=== PATIENT | female | born 1975 | race Caucasian/White ===

== ENCOUNTER 2017-01-25 00:15 | Emergency (ER) | payer MEDICAID ==
[~2017-01-25] VITALS: Ht 170.2 cm; Wt 90.7 kg
[2017-01-25 00:19] VITALS: BP 156/100
--- NOTE | 2017-01-25 00:37 | NUR ---
PATIENT PRESENTS TO ED WITH LOWER ABD PAIN,N/V STARTED AT 2100 HOURS. DENIES DIARRHEA ;SKIN IS PINK/WARM/DRY; AAOX4 WITH EVEN AND STEADY GAIT; LUNGS CLEAR BL; HR EVEN AND REGULAR; PT DENIES ANY FEVER, CP, SOB, OR COUGH AT THIS TIME; PATIENT STATES PAIN OF 10/10 LOWER ABDOMINAL PAIN;AT THIS TIME;PATIENT POSITIONED FOR COMFORT; HOB ELEVATED; BEDRAILS UP X2; BED DOWN. ER WILL BE NOTIFIED.
[2017-01-25] MEDS ORDERED: NACL 0.9% 1,000 ML IV ONE (00:47)
[2017-01-25] MEDS ORDERED: MORPHINE SULFATE 4 MG/ML SYR IVP ONE (00:50)
[2017-01-25] MEDS ORDERED: ONDANSETRON 4 MG/2 ML VIAL IVP ONE (00:50)
[2017-01-25] MEDS ORDERED: KETOROLAC 30 MG/ML VIAL IVP ONE ×2 (00:50→01:40)
--- NOTE | 2017-01-25 00:55 | NUR ---
LAB AT BEDSIDE.
[2017-01-25 01:03] LABS: APPEARANCE,URINE CLEAR (CLEAR); BILIRUBIN,URINE NEGATIVE (NEGATIVE); BLOOD, URINE 1+ (NEGATIVE); COLOR,URINE YELLOW (YELLOW); LEUKOCYTE ESTERASE ,URINE 1+ (NEGATIVE); NITRITE, URINE NEGATIVE (NEGATIVE); PROTEIN,URINE NEGATIVE (NEGATIVE); UGLUCOSE NEGATIVE (NEGATIVE); UROBILINOGEN,URINE 0.2 EU/dL (0.2 - 1)
[2017-01-25 01:06] LABS: HEMATOCRIT 40.6 % (36-48); HEMOGLOBIN 13.5 g/dL (12.0-16.0); MEAN CORPUSCULAR HEMOGLOBIN 29 pg (27-31); MEAN CORPUSCULAR HGB CONC 33 g/dL (33-37); MEAN CORPUSCULAR VOLUME 88 fL (80-94); PLATELET COUNT (AUTO) 322 K/uL (140-450); RED BLOOD CELL COUNT(AUTO) 4.62 MIL/uL (4.20-5.40); RED CELL DISTRIBUTION WIDTH 12.5 % (11.6-13.7); WHITE BLOOD COUNT (AUTO) 7.4 K/uL (4.8-10.8)
[2017-01-25 01:14] LABS: ANION GAP 10.1 (8-16); CALCIUM 8.7 mg/dL (8.5-10.1); CARBON DIOXIDE 28.6 mmol/L (21-32); CREATININE 0.8 mg/dL (0.6-1.3); POTASSIUM 3.7 mmol/L (3.5-5.1)
[2017-01-25 01:15] LABS: BAND % (MANUAL) 0 % (0-8); NEUTROPHILS % (MANUAL) 43 (43-65)
[2017-01-25 01:16] LABS: EOSINOPHILS % (MANUAL) 5 % (0-4); LYMPHOCYTES % (MANUAL) 49 % (20-46); MONOCYTES % (MANUAL) 3 % (5-12)
[2017-01-25 01:20] LABS: ALBUMIN 3.5 g/dL (3.4-5.0); TOTAL BILIRUBIN 0.2 mg/dL (0.0-1.0); TOTAL PROTEIN, SERUM 7.6 g/dL (6.4-8.2)
--- NOTE | 2017-01-25 01:23 | NUR ---
PT TAKEN FOR CT SCAN.
[2017-01-25 01:25] LABS: BACTERIA,URINE 4+ /HPF (None Seen)
--- NOTE | 2017-01-25 01:31 | NUR ---
PT BACK FROM CT SCAN.
--- NOTE | 2017-01-25 01:38 | NUR ---
PT RESTING IN BED, VSS, NO S/S OF DISTRESS NOTED AT THE MOMENT. STATES HER PAIN HAS DECREASED TO A 3/10.
[2017-01-25] MEDS ORDERED: HYDROcodone/APAP 5/325 MG 1 TAB TAB PO ONE (01:40)
--- NOTE | 2017-01-25 02:25 | NUR ---
IV removed, catheter intact and site benign. Applied folded 4x4 gauze and tape to stop bleeding.
--- NOTE | 2017-01-25 02:29 | NUR ---
Patient discharged with v/s stable. Written and verbal after care instructions given and explained. Patient alert, oriented and verbalized understanding of instructions. Ambulatory with steady gait. All questions addressed prior to discharge. ID band removed. Patient advised to follow up with PMD. Rx of ZOFRAN ODT 4MG, KEFLEX 500MG, NORCO 5/325MG, FLOMAX 0.4MG, NAPROSYN 500MG given. Patient educated on indication of medication including possible reaction and side effects. Opportunity to ask questions provided and answered.
[2017-01-25 02:30] VITALS: BP 122/79
== END 2017-01-25 02:30 | disposition home or self-care (01) ==
LOC: MED 00:15
DX: N20.1 Calculus of ureter (principal); R82.71 Bacteriuria; Z90.49 Acquired absence of other specified parts of digestive tract
CPT/HCPCS: 36415; 74176; 80053; 81001; 81025; 83690; 85025; 87086; 96361; 96374; 96375; 99285; J1885; J2270; J2405; J7030

== ENCOUNTER 2017-01-29 08:25 | Inpatient (IN) | payer MEDICAID ==
[~2017-01-29] VITALS: Ht 157.5 cm; Wt 89.4 kg
[2017-01-29 08:36] VITALS: BP 115/72
--- NOTE | 2017-01-29 08:36 | NUR ---
Patient ambulated to bed 5. RN evaluating patient at bedside.
--- NOTE | 2017-01-29 08:37 | NUR ---
41F BIB DAUGHTER C/O RLQ ABDOMINAL PAIN WITH VOMITING X 5 DAYS. PT STATES WAS SEEN IN ER ON MONDAY WITH SAME PAIN, AND PAIN NOT IMPROVING.SKIN IS PINK/WARM/DRY; AAOX4 WITH EVEN AND STEADY GAIT; LUNGS CLEAR BL; HR EVEN AND REGULAR; PT DENIES ANY FEVER, CP, SOB, OR COUGH AT THIS TIME; PATIENT STATES PAIN OF 8/10 AT THIS TIME; VSS; PATIENT POSITIONED FOR COMFORT; HOB ELEVATED; BEDRAILS UP X2; BED DOWN. ER MD MADE AWARE OF PT STATUS.
[2017-01-29] MEDS ORDERED: NACL 0.9% 500 ML IV SCH (08:38)
[2017-01-29] MEDS ORDERED: MORPHINE SULFATE 10 MG/ML SYR IVP ONE (08:40)
[2017-01-29] MEDS ORDERED: ONDANSETRON 4 MG/2 ML VIAL IVP ONE (08:40)
[2017-01-29] MEDS ORDERED: HYDROmorphone PFS 2 MG/ML SYR IVP ONE (08:40)
[2017-01-29 08:59] LABS: HEMATOCRIT 42.3 % (36-48); HEMOGLOBIN 13.7 g/dL (12.0-16.0); MEAN CORPUSCULAR HEMOGLOBIN 29 pg (27-31); MEAN CORPUSCULAR HGB CONC 32 g/dL (33-37); MEAN CORPUSCULAR VOLUME 88 fL (80-94); PLATELET COUNT (AUTO) 343 K/uL (140-450); RED BLOOD CELL COUNT(AUTO) 4.79 MIL/uL (4.20-5.40); RED CELL DISTRIBUTION WIDTH 12.3 % (11.6-13.7); WHITE BLOOD COUNT (AUTO) 5.3 K/uL (4.8-10.8)
--- NOTE | 2017-01-29 08:59 | NUR ---
INSERTED IV CATH 20G LAC ; PT TOLERATED PROCEDURE WELL. IV PATENT/INTACT. ADMINISTERED IVF & MEDS ORDER.
[2017-01-29 09:13] LABS: ALBUMIN 3.4 g/dL (3.4-5.0); ANION GAP 12.3 (8-16); CALCIUM 8.9 mg/dL (8.5-10.1); CARBON DIOXIDE 25.5 mmol/L (21-32); CREATININE 0.8 mg/dL (0.6-1.3); POTASSIUM 3.8 mmol/L (3.5-5.1); TOTAL BILIRUBIN 0.3 mg/dL (0.0-1.0); TOTAL PROTEIN, SERUM 7.7 g/dL (6.4-8.2)
[2017-01-29 09:37] LABS: BAND % (MANUAL) 5 % (0-8); EOSINOPHILS % (MANUAL) 1 % (0-4); LYMPHOCYTES % (MANUAL) 36 % (20-46); MONOCYTES % (MANUAL) 12 % (5-12); NEUTROPHILS % (MANUAL) 46 (43-65)
--- NOTE | 2017-01-29 09:55 | NUR ---
PT STS PAIN3/10. AMB TO RESTROOM. SENT URINE SPECIMEN TO LAB.
--- NOTE | 2017-01-29 10:09 | NUR ---
Patient appears to be resting comfortably in bed. Vital Signs within normal limits. Respirations even and unlabored.WILL CONTINUE TO MONITOR.
--- NOTE | 2017-01-29 10:40 | NUR ---
DR CABAN REEVALUATING PT AT BEDSIDE.
--- NOTE | 2017-01-29 11:00 | NUR ---
DR CABAN REEVALUATING PT AT BEDSIDE.
[2017-01-29 11:02] LABS: APPEARANCE,URINE HAZY (CLEAR); BILIRUBIN,URINE NEGATIVE (NEGATIVE); BLOOD, URINE 2+ (NEGATIVE); COLOR,URINE YELLOW (YELLOW); LEUKOCYTE ESTERASE ,URINE 1+ (NEGATIVE); NITRITE, URINE NEGATIVE (NEGATIVE); PH,URINE 7.5 (5.0-9.0); PROTEIN,URINE TRACE (NEGATIVE); UGLUCOSE NEGATIVE (NEGATIVE); UROBILINOGEN,URINE 0.2 EU/dL (0.2 - 1)
[2017-01-29] MEDS ORDERED: NACL 0.9% 1,000 ML IV ONE (11:05)
[2017-01-29 11:11] LABS: BACTERIA,URINE 1+ /HPF (None Seen)
[2017-01-29 11:12] LABS: MUCUS,URINE 2+ /LPF (None Seen); RBC,URINE 11-20 (MOD) /HPF (0-5)
[2017-01-29] MEDS ORDERED: KETOROLAC 15 MG/ML VIAL IVP PRN (12:40)
[2017-01-29] MEDS ORDERED: ONDANSETRON 4 MG ODT PO PRN (12:50)
[2017-01-29] MEDS ORDERED: TAMSULOSIN 0.4 MG CAP PO SCH (13:02)
--- NOTE | 2017-01-29 13:04 | NUR ---
X RAY AT BEDSIDE.
[2017-01-29] MEDS ORDERED: HYDR-4446 PO (13:05)
[2017-01-29] MEDS ORDERED: TAMS0.4C96 PO (13:05)
[2017-01-29] MEDS ORDERED: ONDA4ODT1 PO (13:05)
[2017-01-29] MEDS ORDERED: NAPR500T1 PO (13:05)
[2017-01-29] MEDS ORDERED: CEPH500C16 PO (13:05)
--- NOTE | 2017-01-29 13:15 | NUR ---
GAVE REPORT TO JOANNE DELONG.
--- NOTE | 2017-01-29 13:17 | NUR ---
Patient will be admitted to care of DR MOHAN. Admited to TELE. Will go to room 105A. Belongings list completed. Report to JOANNE DELONG.
--- NOTE | 2017-01-29 13:40 | NUR ---
PT ARRIVED ON THE UNIT WITH 2 ER NURSES. PT IS ALERT AND AWAKE. INTRODUCED SELF AND UPDATED THE BOARD. PT IS UNABLE TO MOVE. NO STRENGTH IN ARMS OR LEGS OR NECK. PT STATES SHE WALKED INTO THE ER. AFTER MEDICATIONS, SHE WASN'T ABLE TO MOVE OR FEEL HER BODY. PT HAS AN IV ON THE L AC 20G SL. SKIN IS INTACT. DENIES PAIN AT THIS TIME. WILL START ON ADMISSION.
--- NOTE | 2017-01-29 14:40 | NUR ---
PT WANTED TO USE THE BATHROOM. WILL GET BEDPAN.
[2017-01-29 15:25] VITALS: BP 122/79
[2017-01-29 16:00] VITALS: BP 107/69
[2017-01-29] MEDS: NACL 0.9% 1,000 ML IV SCH ×2 (16:16→23:52)
--- NOTE | 2017-01-29 16:40 | NUR ---
RESIDENT MD SAW PT AND ASSESSED HER. SENSE OF FEELING IS RETURNING, PT ABLE TO MOVE ARMS AND LEGS. PER MD, DILAUDID AND MORPHINE GIVEN IN ER WAS CAUSING THE WEAKNESS.
--- NOTE | 2017-01-29 17:22 | NUR ---
PT RESTING COMFORTABLY. NO SIGNS OF DISTRESS. WILL CONTINUE TO MONITOR PT.
--- NOTE | 2017-01-29 18:41 | NUR ---
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 PT IS HAVING MORE FEELING IN THE ARMS AND LEGS AND IS ABLE TO MOVE A LITTLE BIT MORE. EATING WELL. WILL CONTINUE TO MONITOR PT.
--- NOTE | 2017-01-29 19:20 | NUR ---
ENDORSED PT TO THE NIGHTSHIFT NURSE AT BEDSIDE FOR CONTINUITY OF CARE. PT IN STABLE CONDITION.
--- NOTE | 2017-01-29 19:21 | NUR ---
PATIENT IS CURRENTLY AWAKE ALERT ORIENTED RESTING IN BED AT THIS TIME PATIENT IS MOVING HER ARMS A LITTLE MORE AND IS ABLE TO LIFT BOTH LEGS.PATIENT DENIES PAIN AND DENIES ANY NAUSEA AT THIS TIME.IVF INFUSING WELL IV SITE PATENT.PATIENT DENIES PAIN AND DISCOMFORT.CALL LIGHT WITHIN REACH WILL CONTINUE TO MONITOR.
[2017-01-29 20:00] VITALS: BP 106/66
--- NOTE | 2017-01-29 20:00 | NUR ---
Patient's Plan of Care was discussed and reviewed with PICKER/PULLER: ROSARIO KOWALSKI
--- NOTE | 2017-01-29 21:05 | NUR ---
PATIENT RESTING IN BED IN NO DISTRESS WILL CONTINUE TO MONITOR.PLAN OF CARE DISCUSSED WITH THE PATIENT.CALL LIGHT WITHIN REACH.
--- NOTE | 2017-01-29 22:05 | NUR ---
PATIENT IS CURRENTLY STABLE DENIES PAIN ABLE TO AMBULATE TO THE BATHROOM PATIENT CONTINUES TO BE ENCOURAGED TO CALL IF SHE NEEDS HELP.PATIENT VERBALIZES UNDERSTANDING.CALL LIGHT WITHIN REACH WILL CONTINUE TO MONITOR.
[2017-01-30] VITALS: BP 95/56
--- NOTE | 2017-01-30 00:20 | NUR ---
PATIENT STABLE RESTING IN BED DENIES PAIN AND DENIES ANY NAUSEA AT THIS TIME.IVF INFUSING WELL IV SITE PATENT WILL CONTINUE TO MONITOR.CALL LIGHT WITHIN REACH.
--- NOTE | 2017-01-30 02:50 | NUR ---
PATIENT STABLE SLEEPING IN BED,IVF INFUSING WELL IV SITE PATENT WILL CONTINUE TO MONITOR.
--- NOTE | 2017-01-30 05:34 | NUR ---
PT HAVE A ORDER FOR AM ROUTINE EKG, PER RN THAT PT JUST FELT ASLEEP, PT STABLE NO DISTRESS
--- NOTE | 2017-01-30 05:52 | NUR ---
PATIENT STABLE SLEEPING COMFORTABLY IN BED IVF INFUSING WELL IV SITE PATENT NO INFILTRATION NOTED.WILL CONTINUE TO MONITOR.
[2017-01-30 06:27] LABS: ANION GAP 10.8 (8-16); CARBON DIOXIDE 26.4 mmol/L (21-32); CREATININE 0.7 mg/dL (0.6-1.3); POTASSIUM 4.2 mmol/L (3.5-5.1)
[2017-01-30 06:29] LABS: MAGNESIUM 1.9 mg/dL (1.8-2.4); PHOSPHORUS 3.4 mg/dL (2.5-4.9)
[2017-01-30] MEDS: NACL 0.9% 1,000 ML IV SCH (07:29)
--- NOTE | 2017-01-30 07:40 | NUR ---
PATIENT STABLE REPORT ENDORSED TO JOANNE BOURGEOIS AT BEDSIDE.
--- NOTE | 2017-01-30 07:41 | NUR ---
RECEIVED CARE OF PT FROM DEFENSE ANALYST NURSE AT BEDSIDE. PT IS A&OX4 [place] SPEAKING ONLY. NO DISTRESS NOTED. NO COMPLAINTS OR PAIN AT THIS TIME. PT HAS IV ON L AC 20 G RUNNING NS@130. CALL LIGHT WITHIN REACH. WILL CONTINUE TO MONITOR.
[2017-01-30 08:00] VITALS: BP 112/66
--- NOTE | 2017-01-30 08:08 | NUR ---
PATIENT HAS BEEN SCREENED AND CATEGORIZED HIGH NUTRITION RISK. PATIENT WILL BE SEEN WITHIN 1-2 DAYS OF ADMISSION. 01/30/17- ADOLFO FERNANDO RD
[2017-01-30] MEDS ORDERED: TAMSULOSIN 0.4 MG CAP PO SCH (08:30)
--- NOTE | 2017-01-30 09:30 | NUR ---
PT IS RESTING COMFORTABLY IN BED. NO DISTRESS NOTED. CALL LIGHT WITHIN REACH. WILL CONTINUE TO MONITOR.
--- NOTE | 2017-01-30 09:56 | NUR ---
01/30/17 RD INITIAL ASSESSMENT COMPLETED PLEASE REFER TO NUTRITION ASSESSMENT UNDER CARE ACTIVITY FOR ESTIMATED NUTRITIONAL NEEDS. 1. CONTINUE REGULAR DIET 2. RD TO FOLLOW-UP 3-5 DAYS, MODERATE RISK ADOLFO FERNANDO RD
[2017-01-30] MEDS ORDERED: CIPR250T3 PO (09:59)
[2017-01-30] MEDS ORDERED: SACC250C1 PO (10:05)
[2017-01-30 11:03] VITALS: BP 112/66
--- NOTE | 2017-01-30 11:50 | NUR ---
USED GLUE BONE CRUSHER PHONE [phone] TO GIVE DC INSTRUCTIONS. PT VERBALIZED UNDERSTANDING AND SIGNED ALL APPROPRIATE PAPERWORK. CALL LIGHT WITHIN REACH. WILL CALL WHEN READY TO GO. IV REMOVED CANNULA INTACT.
--- NOTE | 2017-01-30 11:55 | NUR ---
PT REFUSED WHEELCHAIR. WALKED PT OUT OF HOSPITAL, ACCOMPANIED BY . PT IN STABLE CONDITION.
[2017-02-01] MEDS ORDERED: CIPR250T6 PO (12:22)
[2017-02-01] MEDS ORDERED: SACC250C4 PO (12:23)
== END 2017-01-30 11:55 | disposition home or self-care (01) | DRG 465 ==
LOC: MED 08:25 → MTU 12:29
PROVIDERS: ADMIT Family Medicine; ATTEND Family Medicine
DX: N13.2 Hydronephrosis with renal and ureteral calculous obstruction (principal); N17.0 Acute kidney failure with tubular necrosis; E66.01 Morbid (severe) obesity due to excess calories; N39.0 Urinary tract infection, site not specified; N28.1 Cyst of kidney, acquired; E86.0 Dehydration; R31.9 Hematuria, unspecified; Z68.36 Body mass index [BMI] 36.0-36.9, adult; Z83.3 Family history of diabetes mellitus; Z82.49 Family history of ischemic heart disease and other diseases of the circulatory system; Z90.49 Acquired absence of other specified parts of digestive tract
CPT/HCPCS: 36415; 71010; 76770; 80048; 80053; 81001; 81025; 82150; 83690; 83735; 84100; 85025; 87081; 87086; 93005; 96361; 96374; 96375; 99285; J0696; J1170; J2270; J2405; J7030; J7060; Q0092